=== PATIENT | female | born 1950 | race Caucasian/White ===

== ENCOUNTER 2024-10-13 16:54 | Emergency (ER) | payer MEDICARE, MEDICAID, SELFPAY ==
[2024-10-13 17:12] VITALS: BP 174/77; PULSE 78; RESP 18; TEMP 36.9; O2SAT 99; BMI 27.9
--- NOTE | 2024-10-13 17:17 | XR_ITS ---
Examination: PA lateral chest 2 views TECHNIQUE: Upright PA lateral chest 2 views Exam date and time: October 13, 2024 1736 hours Comparison May 25, 2017 INDICATIONS: Onset chest pain today. FINDINGS: Normal heart size Mild hyperexpansion Accentuation basilar bronchovascular markings. No lobar pneumonia or pulmonary edema Mild right apical parenchymal scarring Deviation trachea to the left which may relate to substernal thyroid IMPRESSION: COPD Basilar bronchitis pattern Consider thyroid sonogram follow-up to exclude right thyromegaly displacing the trachea to the left
--- NOTE | 2024-10-13 17:17 | XR_ITS ---
Examination: CT cervical spine without contrast 2-D sagittal reconstructions 2-D coronal reconstructions 3-D reconstructions. Exam date and time:October 13, 2024 1738 hours INDICATIONS: Neck pain arthritis 7 months CTDI:vol (mGy) 12.1 DLP: (mGycm) 2056 Technique: Multiple 2 mm axial sections of the cervical spine have been obtained. The coronal and sagittal reconstructions have been obtained. 3-D reconstructions have been obtained. Low dose protocols were performed. One or more of the following dose reduction techniques were used; automated exposure control, adjustment of the mA and/or KV according to patient size, use of iterative reconstruction technique. Findings: Axial sections demonstrate intact base of the skull. C1 exhibit satisfactory relationship to the odontoid. No acute cervical vertebral body fracture seen. Alignment posterior spinous processes satisfactory. Mild disc narrowing C4-C5, C5-C6, C6-C7 C5-C6 moderate right neural foraminal stenosis Impression: No acute cervical fracture. Mild degenerative disc disease C4-C5, C5-C6, C6-C7 C5-C6 moderate right neural foraminal stenosis, consider MRI cervical spine follow-up to best assess for acquired soft tissue spinal stenosis
--- NOTE | 2024-10-13 17:17 | XR_ITS ---
Examination: Shoulder,left, 3 views Technique: Shoulder AP internal rotation, AP external rotation, Y view shoulder, 3 views Exam date and time :October 13, 2024 1738 hours INDICATIONS: Left shoulder pain today FINDINGS: Prominent osteopenia Moderate narrowing glenohumeral joint Prominent calcific tendinitis No fracture or shoulder dislocation IMPRESSION: Moderate narrowing glenohumeral joint Prominent calcific tendinitis
--- NOTE | 2024-10-13 17:18 | PD.EDRME ---
Rapid Medical Screening Exam RME Arrival date/time: 10/13/24 16:54 73-year-old female presents to the emergency department complaints of neck pain shoulder pain and chest pain patient reports pain is worse with movement Chief Complaint: Chest Pain Time Seen by Provider: 10/13/24 16:57 Vital signs: Vital Signs Temperature 98.5 F 10/13/24 17:12 Pulse Rate 78 10/13/24 17:12 Respiratory Rate 18 10/13/24 17:12 Blood Pressure 174/77 H 10/13/24 17:12 Pulse Oximetry (%) 99 10/13/24 17:12 Oxygen Delivery Method Room Air 10/13/24 17:12
[2024-10-13] MEDS: DIAZEPAM 5 MG TABLET 10 MG PO (17:24)
[2024-10-13] MEDS: ACETAMINOPHEN 500 MG TABLET 1000 MG PO (17:25)
[2024-10-13 18:22] LABS: Basophils # (Auto) 0.1 Thou/mm3 (0.0-0.2); Basophils % (Auto) 1 % (0-2.5); Eosinophils # (Auto) 0.3 Thou/mm3 (0.0-0.5); Eosinophils % (Auto) 3 % (0-10); Hematocrit 39.6 % (36.0-46.0); Hemoglobin 13.3 g/dL (12.0-16.0); Immature Granulocytes % (Auto) 0 % (0-0); Immature Granulocytes Auto 0.04 Thou/mm3 (0.00-0.00); Lymphocytes # (Auto) 2.5 Thou/mm3 (1.0-4.8); Lymphocytes % (Auto) 28 % (10-50); Mean Corpuscular HGB Conc 33.6 g/dl (31.0-37.0); Mean Corpuscular Volume 83 fL (80-100); Monocytes # (Auto) 0.9 Thou/mm3 (0.0-0.8); Monocytes % (Auto) 10 % (0-12); Neutrophils # (Auto) 5.2 Thou/mm3 (1.8-7.7); Neutrophils % (Auto) 58 % (37-80); Nucleated Red Blood Cell % 0 /100 WBC (0); Platelet Count 292 Thou/mm3 (140-440); RDW Standard Deviation 42.5 fL (36.4-46.3); Red Blood Count 4.75 Miln/mm3 (4.00-5.20); White Blood Count 8.9 Thou/mm3 (3.6-11.0)
[2024-10-13 19:11] LABS: Alanine Aminotransferase 15 U/L (10-49); Albumin, Serum 4.5 gm/dL (3.4-4.8); Albumin/Globulin Ratio 1.7 (1.2-2.2); Alkaline Phosphatase 84 U/L (46-116); Anion Gap 7 (7-16); Aspartate Amino Transferase 13 U/L (0-34); BUN/Creatinine Ratio 23 Ratio (12-20); Bilirubin,Total 0.4 mg/dL (0.3-1.2); Blood Urea Nitrogen 18 mg/dL (9-23); Calcium 9.8 mg/dL (8.3-10.6); Calcium (Corrected) 9.8 mg/dL (8.5-10.1); Carbon Dioxide 27.7 mMol/L (20.0-31.0); Chloride 103 mMol/L (98-107); Creatinine (Component) 0.8 mg/dL (0.6-1.3); Estimated Creatinine Clearance 54.9 mL/min (>60); Globulin 2.6 gm/dL (2.3-3.5); Glucose 113 mg/dL (74-106); Osmolality,Calculated 278 (275-295); Potassium 3.7 mMol/L (3.4-5.1); Sodium 138 mMol/L (136-145); Total Protein 7.1 gm/dL (5.7-8.2); Troponin I < 0.020 ng/mL (0.0-0.045); eGFR > 60 See Note
--- NOTE | 2024-10-13 22:32 | EDNOTE_ITS ---
ED Chest Pain RME/HPI General Chief Complaint: Chest Pain Stated Complaint: PAIN TO RIGHT CHEST, HEAD, AND ARM Time Seen by Provider: 10/13/24 16:57 Arrival date/time: 10/13/24 16:54 RME / HPI RME / HPI narrative: 10/13/24 16:54 73-year-old female presents to the emergency department complaints of neck pain shoulder pain and chest pain patient reports pain is worse with movement ------ Dr. Fernández's Main ED Evaluation: 73yo female with pmhx arthritis, HTN presents to the ED for complaints of neck, shoulder and chest pain. Patient states she was diagnosed with arthritis in her neck 7 months ago, and has had pain going to her left arm. She states she started having chest pain last , describing it as pressure in nature. She states the pain radiates to her upper back. She states her pain is intermittent and has been getting worse, reporting she hasn't been able to sleep and worsens with movement, so she came in for evaluation. She reports an associated mild headache and shortness of breath when she talks. She denies any cough, fever, chills, sweating, N/V, BLE swelling, abdominal pain, UTI symptoms, numbness, tingling, difficulty ambulating or any other associated symptoms. Denies any falls, injuries or loss of consciousness. Denies any tobacco or alcohol use. Patient endorses taking naproxen as prescribed by her doctor, but states it doesn't help with her pain. PCP: [facility] Related Data Home Medications ?Medication ?Instructions ?Recorded ?Confirmed hydrochlorothiazide 25 mg tablet 25 mg PO QAM #0 tabs 05/24/17 Previous Rx's ?Medication ?Instructions ?Recorded cefuroxime axetil 250 mg tablet 500 mg (2 x 250 mg) PO BID #14 tabs 05/27/17 (Cefuroxime) fluconazole 100 mg tablet 400 mg (4 x 100 mg) PO QDAY #14 05/27/17 (Diflucan) tabs cyclobenzaprine 10 mg tablet 10 mg PO TID PRN muscle spasm #30 10/13/24 tabs meloxicam 7.5 mg tablet 7.5 mg PO QDAY #20 tabs 10/13/24 Allergies Allergy/AdvReac Type Severity Reaction Status Date / Time codeine Allergy Unknown Rash Verified 10/04/23 10:44 levofloxacin AdvReac Unknown Vomiting Verified 10/04/23 10:44 Review of Systems Review of Systems Systems Reviewed: All systems reviewed, normal except as documented Narrative Review of Systems: Gen: No fever, no chills, no weight loss EYES: No discharge, no visual changes, no pain HEENT: No ear pain, no congestion, no sore throat, + neck pain PULM: + shortness of breath, no cough, no congestion CV: + chest pain, no dyspnea on exertion, no palpitations GI: No nausea, no vomiting, no diarrhea, no pain, no constipation : No frequency, no urgency, no dysuria Musc/skel: + joint pain, no back pain Skin: No rash. Warm and dry. Psyc: No hallucinations, no depression Heme/Lymph: No easy bleeding or bruising tendencies Neuro: No weakness, + headache Past Medical History Social History SMOKING STATUS: Never smoker ED Exam Narrative Physical exam: GEN. APPEARANCE: Patient is alert awake oriented x3 under moderate pain distress, sitting up in the stretcher holding the left side of her neck due to having pain in her neck; does not look acutely ill/ toxic. Patient has good eye contact. Patient is cooperative. VITALS: All vitals were reviewed and the pulse ox is 99% on room air, which is normal according to my interpretation. HEENT: Normocephalic, atraumatic and nontender. Pupils are equal and reactive to light and accommodation. Oral mucosa are moist. NECK: Supple, nontender, no meningismus, no JVD. No thyromegaly on palpation. CHEST: Nontender on palpation, no deformity and no crepitus. CARDIOVASCULAR: Heart regular rhythm no murmur or gallop rub or extra beats; not tachycardic. LUNGS: Clear to auscultation bilaterally with symmetrical chest rise. No laboring tachypnea or wheezing. No intercostal subcostal retraction. No rales and no rhonchi. ABDOMEN: Soft, flat, nontender at all, no guarding or rebound tenderness. There are no abnormal masses palpated. No pulsatile masses or bruits. Active and normal bowel sounds. GENITALIA: Not examined. RECTAL EXAM: Not done. EXTREMITIES: Nontender. No edema. No cyanosis. Patient is able to move all 4 extremities well. SKIN: Warm and dry, no rashes noted. MUSCULOSKELETAL: No lumbar or midline bony tenderness. There is no CVA tenderness. No paraspinal muscle spasm or tenderness. NEURO: Cranial nerves II through XII grossly intact. There is no focalization. GCS is 15. PSYCHIATRIC: Patient is in normal mood and affect, cooperative. LYMPHATICS: No major lymphadenopathy noted. Course Course Course Narrative: CXR is ordered for determining the etiology of chest pain. Quality Measures none Orders Category Date Time Status EKG (ED ONLY) *Do not use* NOW Care 10/13/24 16:[address] cervical spine wo con Stat Exams 10/13/24 17:17 Completed EKG (ED Only) Stat Exams 10/13/24 16:59 Ordered XR chest 2V Stat Exams 10/13/24 17:17 Completed XR shoulder LT min 2V Stat Exams 10/13/24 17:17 Completed CBC Stat Lab 10/13/24 18:07 Completed Comprehensive Metabolic Panel Stat Lab 10/13/24 18:07 Completed Troponin I Stat Lab 10/13/24 18:07 Completed Acetaminophen Tab [Tylenol ES Tab] Med 10/13/24 17:17 Discontinued 1,000 mg PO X1 ONE CYCLObenzaPRINE [Flexeril] Med 10/13/24 23:45 Discontinued 10 mg PO X1 ONE Diazepam [Valium] Med 10/13/24 17:17 Discontinued 10 mg PO X1 ONE Ketorolac Inj [Toradol Inj] Med 10/13/24 23:45 Discontinued 30 mg IM X1 ONE Vital Signs Vital signs: Vital Signs Temperature 98.5 F 10/13/24 17:12 Pulse Rate 78 10/13/24 17:12 Respiratory Rate 18 10/13/24 17:12 Blood Pressure 174/77 H 10/13/24 17:12 Pulse Oximetry (%) 99 10/13/24 17:12 Oxygen Delivery Method Room Air 10/13/24 17:12 Procedures -ED EKG Interpretation #1: Date of EK10/13/24 Rate: 69 Interpretation: Interpreted by me EKG Impression: Normal sinus rhythm, No acute ST-T changes, No ectopy, No ischemic changes, Normal QRS, Normal intervals and Normal axis Chest Pain MDM Narrative MDM Narrative:: Scribe Attestation: 10/13/24 - Monica Hernandez am scribing for and in the presence of Dr. Doyan. Patient comes in with left-sided neck pain causing pressure to her left side of the head and to the anterior left chest on and off for the last 6 days, pleuritic and positional. She has left arm pain both in her arm and also left forearm area for the last 2 months also related to her neck pain. She denies numbness or tingling. She says that the pain gets worse when she is talking or moving around. She feels short of breath when she is talking but otherwise no coughing, sweating or nausea vomiting. She denies any fever or chills. She denies any fall or injuries. She denies any leg swelling or PND orthopnea. She denies any abdominal pain or UTI symptoms. Patient has had neck problems for at least 7 months and she has gone to conference reservationist who told her that she has herniated disc. Patient seems to be in moderate pain distress and she cannot move her head or neck freely. Also, she does not have tenderness on palpation of her left pectoralis muscles. Her blood workup is unremarkable including her white count and differential and her H&H is normal. Her troponin is negative and her chemistries are all normal as well. Her CAT scan of the neck shows moderate stenosis of the C5-C6. Looking at her old records, patient was here more than 7 years ago. She does have hypertension and chronic neck pain but no diabetes. She is status postcholecystectomy. We will give her a shot of Toradol and Flexeril 10 mg p.o. and discharge her home. Provider Notation: Although this document has been carefully reviewed, there may still be some phonetic and other typographical errors. These errors are purely grammatical due to imperfections in the software program and should not be construed in any way to compromise the substance of the patient's medical care during this visit. Patient data External records reviewed:: [facility] previous records (Per chart review, patient was seen here on 10/04/23 for hand pain.) Clinical information provided by:: patient Social determinants that could affect healthcare access:: none Patient has the following chronic illnesses:: arthritis, HTN How is presenting disease/condition affected by chronic disease/condition?: exacerbated by Evaluation data The following diagnostics were reviewed and interpreted by me:: lab results, radiology exam(s) and EKG tracing(s) Lab and/or radiology exams considered but not ordered:: none Interpretation Summary: See above under MDM narrative. ---- [facility] Report Signed Patient: SRI TORRES Record#: [id number] Birthdate: 1950 Age/Sex: 73 / F Location: [facility] Attending Dr: Ordering Physician: Roverto DOUGLASS)Raffi NP Date of Service: 10/13/24 Procedure(s): CT cervical spine wo con Accession Number(s): [id number] cc: Roverto DOUGLASS),Raffi HEBERT; Melly Carmona PA-C; Samuel Will MD~ Examination: CT cervical spine without contrast 2-D sagittal reconstructions 2-D coronal reconstructions 3-D reconstructions. Exam date and time:October 13, 2024 1738 hours INDICATIONS: Neck pain arthritis 7 months CTDI:vol (mGy) 12.1 DLP: (mGycm) 2056 Technique: Multiple 2 mm axial sections of the cervical spine have been obtained. The coronal and sagittal reconstructions have been obtained. 3-D reconstructions have been obtained. Low dose protocols were performed. One or more of the following dose reduction techniques were used; automated exposure control, adjustment of the mA and/or KV according to patient size, use of iterative reconstruction technique. Findings: Axial sections demonstrate intact base of the skull. C1 exhibit satisfactory relationship to the odontoid. No acute cervical vertebral body fracture seen. Alignment posterior spinous processes satisfactory. Mild disc narrowing C4-C5, C5-C6, C6-C7 C5-C6 moderate right neural foraminal stenosis Impression: No acute cervical fracture. Mild degenerative disc disease C4-C5, C5-C6, C6-C7 C5-C6 moderate right neural foraminal stenosis, consider MRI cervical spine follow-up to best assess for acquired soft tissue spinal stenosis Dictated By: Samuel Will MD Signed By: <Electronically signed by Samuel Will MD in OV> 10/13/241821 [facility] Signed Patient: SRI TORRES Record#: [id number] Birthdate: 1950 Age/Sex: 73 / F Location: [facility] Attending Dr: Ordering Physician: Roverto DOUGLASS)Raffi NP Date of Service: 10/13/24 Procedure(s): XR chest 2V Accession Number(s): [id number] cc: Roverto DOUGLASS),Raffi HEBERT; Melly Carmona PA-C; Samuel Will MD~ Examination: PA lateral chest 2 views TECHNIQUE: Upright PA lateral chest 2 views Exam date and time: October 13, 2024 1736 hours Comparison May 25, 2017 INDICATIONS: Onset chest pain today. FINDINGS: Normal heart size Mild hyperexpansion Accentuation basilar bronchovascular markings. No lobar pneumonia or pulmonary edema Mild right apical parenchymal scarring Deviation trachea to the left which may relate to substernal thyroid IMPRESSION: COPD Basilar bronchitis pattern Consider thyroid sonogram follow-up to exclude right thyromegaly displacing the trachea to the left Dictated By: Samuel Will MD Signed By: <Electronically signed by Samuel Will MD in OV> 10/13/24 1833 ------- [facility] Report Signed Patient: SRI TORRES Record#: [id number] Birthdate: 1950 Age/Sex: 73 / F Location: [facility] Attending Dr: Ordering Physician: Roverto DOUGLASS)Raffi NP Date of Service: 10/13/24 Procedure(s): XR shoulder LT min 2V Accession Number(s): [id number] cc: Roverto DOUGLASS),Raffi HEBERT; Melly Carmona PA-C; Sameul Will MD~ Examination: Shoulder,left, 3 views Technique: Shoulder AP internal rotation, AP external rotation, Y view shoulder, 3 views Exam date and time :October 13, 2024 1738 hours INDICATIONS: Left shoulder pain today FINDINGS: Prominent osteopenia Moderate narrowing glenohumeral joint Prominent calcific tendinitis No fracture or shoulder dislocation IMPRESSION: Moderate narrowing glenohumeral joint Prominent calcific tendinitis Dictated By: Samuel Will MD Signed By: <Electronically signed by Samuel Will MD in OV> 10/13/24 1832 Medications / Prescriptions Medications or Prescriptions considered but not ordered:: none Medication administrations:: Medication Administration History Discontinued Medications Acetaminophen (Acetaminophen 500 Mg Tablet) 1,000 mg PO X1 ONE Stop: 10/13/24 17:18 Last Admin: 10/13/24 17:25 Dose: 1,000 mg Documented By: FRANKY Cyclobenzaprine HCl (Cyclobenzaprine 5 Mg Tablet) 10 mg PO X1 ONE Stop: 10/13/24 23:46 Diazepam (Diazepam 5 Mg Tablet) 10 mg PO X1 ONE Stop: 10/13/24 17:18 Last Admin: 10/13/24 17:24 Dose: 10 mg Documented By: FRANKY Ketorolac Tromethamine (Ketorolac Inj 60 Mg/2 Ml Vial) 30 mg IM X1 ONE Stop: 10/13/24 23:46 see above Consultations Consultation(s) initiated? (list below): No Diagnosis Chest Pain Differential Diagnosis: other (cervical strain, cervical herniated disc, muscle spasm, coronary artery syndrome, pneumonia) Most likely diagnosis given after review of the tests above:: see below Admission Indicated Admission indicated?: not indicated Admission Request Was there a request for admission?: No Disposition Plan Disposition Plan: Discharge Discharge Attestation Discharge Attestation: The patient and all family members were given an opportunity to ask questions and understood the discharge instructions. Discharge instructions specifically effects, indications for sooner follow up or return to the emergency department, and the expected course of current diagnosis. Patient condition: Stable Discharge Plan Plan Patient Disposition: HOME (Self Care) Prescriptions/Referrals Prescriptions/Med Rec: New cyclobenzaprine 10 mg tablet 10 mg PO TID PRN (Reason: muscle spasm) Qty: 30 0RF meloxicam 7.5 mg tablet 7.5 mg PO QDAY MDD 1 Qty: 20 0RF No Action hydrochlorothiazide 25 MG tablet 25 mg PO QAM Qty: 0 fluconazole [Diflucan] 100 MG tablet 400 mg PO QDAY Qty: 14 0RF cefuroxime axetil [Cefuroxime] 250 MG tablet 500 mg PO BID Qty: 14 0RF Referrals: Melly Carmona PA-C [Primary Care Provider] - 10/16/24 10:00 am Problem List Clinical Impression: Cervical herniated disc, Muscle spasm Patient/Caregiver Discharge Instructions Education Materials: Cervical Disk Problems Additional Instructions: Bedrest on an orthopedic pillow, with a heating pad underneath your neck, for the next 2 to 3 days until the muscle spasm goes away. Take medications as prescribed. Follow-up with your doctor in 2 to 3 days for recheck Print Language: Greenlandic Stand Alone Forms: [employer] Patient Portal Info Letter
[2024-10-13 22:42] VITALS: BP 192/67; PULSE 61; RESP 18; TEMP 36.6; O2SAT 99
[2024-10-13] MEDS: KETOROLAC INJ 60 MG/2 ML VIAL 30 MG IM (23:51)
[2024-10-13] MEDS: CYCLObenzaPRINE 5 MG TABLET 10 MG PO (23:51)
== END 2024-10-14 00:17 | disposition home or self-care (01) ==
PROVIDERS: Nurse Practitioner Primary Care; Emergency Provider Emergency Medicine; PCP Physician Assistant
DX: M50.21 Other cervical disc displacement, high cervical region (principal); M50.31 Other cervical disc degeneration, high cervical region; M48.02 Spinal stenosis, cervical region; M25.812 Other specified joint disorders, left shoulder; M75.32 Calcific tendinitis of left shoulder; J44.9 Chronic obstructive pulmonary disease, unspecified
CPT/HCPCS: 36415; 71046; 72125; 73030; 80053; 84484; 85025; 93005; 96372; 99284; J1885; A9270

== ENCOUNTER → 2025-03-09 | Outpatient (CLI) | payer OTHER, MEDICAID, SELFPAY ==
--- NOTE | 2025-03-09 08:45 | XR_ITS ---
Examination: Thyroid sonography complete TECHNIQUE: Grayscale sonographic images thyroid lobes with color flow analysis Exam date and time: March 09, 2025 0910 hours INDICATIONS: Left-sided neck pain beginning one month ago FINDINGS: Right thyroid 6.2 cm Upper pole nodule 13 x 15 mm midpole nodule 24 x 26 mm Complex mass lower pole 20 x 24 mm Left thyroid 6.5 cm Midpole nodules 16 x 13 mm, 34 x 27 mm Lower pole mass 24 x 24 mm Smaller masses both thyroid lobes IMPRESSION: Multiple thyroid nodules as above Consider ultrasound-guided fine-needle aspiration of the lower pole right thyroid nodule and mid pole left thyroid nodule
== END | disposition home or self-care (01) ==
LOC: CDIM 08:51
PROVIDERS: PCP Physician Assistant; Referring Provider Physician Assistant; Visit Provider Physician Assistant
DX: E04.2 Nontoxic multinodular goiter (principal)
CPT/HCPCS: 76536

== ENCOUNTER → 2025-10-11 | Outpatient (CLI) | payer OTHER, MEDICAID, SELFPAY ==
--- NOTE | 2025-10-11 13:40 | XR_ITS ---
Examination: Bone densitometry Date and time of exam: October 11, 2025, 1406 hours INDICATIONS: Menopause age 50 vitamin D and calcium 10 years, history neck cancer Technique: Lumbar spine and hip total bone mineralization values of an calculated. Peak reference and age match control results have been displayed. Findings: Lumbar spine total bone mineralization is 0.769 gm/cm2. This is 2.5 standard deviations below peak reference. This is 0.1 standard deviations below age-matched controls. Hip total bone mineralization is 0.790 gm/cm2 This is 1.2 standard deviations below peak reference. This is 0.5 standard deviations below age-matched controls Impression: There is osteoporosis based on lumbar spine measurements. There is osteopenia based on hip measurements
== END | disposition home or self-care (01) ==
DX: M81.0 Age-related osteoporosis without current pathological fracture (principal); M85.88 Other specified disorders of bone density and structure, other site
CPT/HCPCS: 77080